=== PATIENT | female | born 1975 | race African-American/Black ===

== ENCOUNTER 2018-03-14 08:26 | Emergency (ER) | payer OTHER ==
[~2018-03-14] VITALS: Ht 160 cm; Wt 60.0 kg
[2018-03-14 09:52] LABS: BASOPHILS % 0.5 % (0.0-2.0); HEMATOCRIT. 37.3 % (36.0-48.0); HEMOGLOBIN. 12.2 g/dL (12.0-16.0); LYMPHOCYTES % 30.3 % (20.0-50.0); MEAN CORPUSCULAR HEMOGLOBIN 25.2 pg (28.0-32.0); MEAN CORPUSCULAR VOLUME 76.9 fL (81.0-99.0); MEAN PLATELET VOLUME 6.8 fl (7.4-10.4); MONOCYTES % 4.8 % (2.0-8.0); NEUTROPHILS % 61.4 % (40.0-76.0); PLATELET 346 x1000/uL (130-400); RED BLOOD CELL COUNT 4.85 mill/uL (4.2-5.4); RED CELL DISTRIBUTION WIDTH 14.8 % (11.6-14.6)
[2018-03-14 09:58] LABS: CHLORIDE 104 mEq/L (98-107)
[2018-03-14 10:01] LABS: ETHANOL BLOOD < 10 mg/dL
[2018-03-14 10:28] LABS: CLARITY URINE CLEAR (CLEAR); COLOR URINE YELLOW (YELLOW); KETONES URINE NEGATIVE (NEGATIVE); LEUKOCYTE ESTERASE URINE NEGATIVE (NEGATIVE); NITRITE URINE NEGATIVE (NEGATIVE); OCCULT BLOOD URINE NEGATIVE (NEGATIVE); PH URINE 7.5 (4.5-8.0); PROTEIN URINE NEGATIVE (NEGATIVE); SPECIFIC GRAVITY URINE 1.005 (1.005-1.030); UROBILINOGEN URINE 0.2 E.U./dL (0.2-1.0)
[2018-03-14 10:51] LABS: *AMPHETAMINES SCREEN URINE NEGATIVE (NEGATIVE); *BARBITURATES SCREEN URINE NEGATIVE (NEGATIVE); *BENZODIAZEPINES SCREEN URINE NEGATIVE (NEGATIVE)
[2018-03-14 10:52] LABS: *COCAINE SCREEN URINE NEGATIVE (NEGATIVE); CANNABINOID URINE SCREEN NEGATIVE (NEGATIVE); METHADONE URINE SCREEN NEGATIVE (NEGATIVE); OPIATES URINE SCREEN NEGATIVE (NEGATIVE); PHENCYCLIDINE URINE SCREEN NEGATIVE (NEGATIVE)
[2018-03-14 12:00] VITALS: BP 120/77
== END 2018-03-14 12:10 | disposition home or self-care (01) ==
LOC: ER 08:44
DX: F41.9 Anxiety disorder, unspecified (principal); R00.2 Palpitations
CPT/HCPCS: 36415; 80048; 80305; 81003; 85025; 93005; 99285; G0482

== ENCOUNTER 2019-06-28 09:25 | Emergency (ER) | payer OTHER ==
[~2019-06-28] VITALS: Ht 154.9 cm; Wt 60.0 kg
[2019-06-28 10:03] LABS: BASOPHILS % 0.7 % (0.0-2.0); EOSINOPHILS % 2.5 % (0.0-5.0); HEMATOCRIT. 35.7 % (36.0-48.0); HEMOGLOBIN. 11.5 g/dL (12.0-16.0); LYMPHOCYTES % 31.8 % (20.0-50.0); MEAN CORPUSCULAR HEMOGLOBIN 24.8 pg (28.0-32.0); PLATELET 303 x1000/uL (130-400); RED BLOOD CELL COUNT 4.64 mill/uL (4.2-5.4); RED CELL DISTRIBUTION WIDTH 15.8 % (11.6-14.6)
[2019-06-28 10:08] LABS: CHLORIDE 105 mEq/L (98-107)
[2019-06-28 10:11] LABS: HCG SCREEN NEGATIVE
[2019-06-28 11:21] VITALS: BP 110/62
== END 2019-06-28 11:21 | disposition home or self-care (01) ==
LOC: ER 09:25
DX: R55 Syncope and collapse (principal); W18.49XA Other slipping, tripping and stumbling without falling, initial encounter; Y93.A1 Activity, exercise machines primarily for cardiorespiratory conditioning; Y92.39 Other specified sports and athletic area as the place of occurrence of the external cause
CPT/HCPCS: 36415; 71045; 83880; 84484; 84703; 93005; 99284